=== PATIENT | male | born 1965 | race Caucasian/White ===

== ENCOUNTER 2021-11-11 16:37 | Emergency (ER) | payer OTHER ==
[2021-11-11 16:59] VITALS: BP 130/85; PULSE 75
[2021-11-11] MEDS: Lidocaine 1% 5 ML VIAL INJECT ONE (17:03)
== END 2021-11-11 17:16 | disposition home or self-care (01) ==
LOC: LB.ED 16:37
DX: S60.450A Superficial foreign body of right index finger, initial encounter (principal); W45.8XXA Other foreign body or object entering through skin, initial encounter
CPT/HCPCS: 10120; 99283; 99283-25